=== PATIENT | female | born 1935 | race Caucasian/White ===

== ENCOUNTER → 2020-08-09 17:30 | Outpatient (CLI) | payer MEDICARE, SELFPAY ==
[2015-10-01 12:25] VITALS: BMI 37.4
[2020-08-09 17:51] LABS: Absolute Lymphocyte Count 1.28 X10^3/uL (0.83-4.51); Absolute Neutrophil Count 5.6 X10^3/uL (2.0-7.7); Basophil# 0.02 X10^3/uL; Basophil% 0.3 % (0-1); Eosinophil# 0.11 X10^3/uL; Eosinophils% 1.4 % (0-5); Hematocrit 45.2 % (37-47); Hemoglobin 14.5 g/dL (12.0-15.0); Lymphocyte # 1.28 X10^3/ul (0.83-4.51); Lymphocyte % 16.8 % (19-41); Mean Corp Hgb Conc 32.1 g/dL (32-36); Mean Corpuscular Hgb 28.7 pg (27.0-32.0); Mean Corpuscular Volume 89.3 fL (81-99); Monocyte# 0.51 X10^3/uL; Monocyte% 6.7 % (0-10); NRBC Flagged by Analyzer 0 % (0-5); Neutrophil % 73.7 % (47-70); Platelet Count 227 K/mm3 (150-450); RBC Distribution Width CV 13.5 % (11.6-14.6); RBC Distribution Width SD 44.3 fl (35.1-43.9); Red Blood Count 5.06 M/mm3 (4.2-5.4); White Blood Count 7.6 K/mm3 (4.4-11.0)
[2020-08-09 19:02] LABS: Vitamin B12 303 pg/mL (211-911)
[2020-08-09 19:09] LABS: AST(SGOT) 14 U/L (15-37); Alanine Aminotransfer ALT/SGPT 19 U/L (13-56); Albumin, Serum 3.8 g/dL (3.2-5.0); Alkaline Phosphatase 85 U/L (45-117); Anion Gap 7 (5-15); BUN 21 mg/dL (7-18); BUN/Creat Ratio 28.5 RATIO (10-20); Calcium,Total 8.9 mg/dL (8.5-10.1); Chloride 103 mmol/L (98-107); Cholesterol 183 mg/dL (200); Creatinine, Serum 0.74 mg/dL (0.55-1.02); EST Glomerular Filtration Rate 80 mL/min (>60); Est Glom Filt Rate - Afr Amer 96 mL/min (>60); Globulin 3.7 g/dL (2.2-4.2); Glucose 96 mg/dL (74-106); High Density Lipoprotein 78 mg/dL; Potassium 3.8 mmol/L (3.5-5.1); Protein, Total 7.5 g/dL (6.4-8.2); Sodium Level 136 mmol/L (136-145); Thyroid Stim Hormone (TSH) 5.22 uIU/mL (0.358-3.74); Triglycerides 71 mg/dL; Very Low Density Lipoprotein 14 mg/dL (5-40)
[2020-08-13 09:28] LABS: T4 Free Direct 1.04 ng/dL (0.76-1.46)
[2020-08-15 13:04] LABS: Anti-Thyroglobulin AB < 1.0 IU/mL (0.0-0.9); Thyroid Peroxidase AB < 9 IU/mL (0-34)
== END ==
PROVIDERS: PCP Family Medicine; Referring Provider Family Medicine; Visit Provider Family Medicine
DX: I10 Essential (primary) hypertension (principal); F17.200 Nicotine dependence, unspecified, uncomplicated; R41.3 Other amnesia
CPT/HCPCS: 36415; 80053; 80061; 82607; 84432; 84439; 84443; 85025; 86376; 86800

== ENCOUNTER → 2021-03-08 12:44 | Outpatient (CLI) | payer MEDICARE, SELFPAY ==
[2021-03-08 15:04] LABS: Absolute Lymphocyte Count 1.19 X10^3/uL (0.83-4.51); Absolute Neutrophil Count 3.8 X10^3/uL (2.0-7.7); Basophil# 0.02 X10^3/uL; Basophil% 0.4 % (0-1); Eosinophil# 0.06 X10^3/uL; Eosinophils% 1.1 % (0-5); Hemoglobin 15.4 g/dL (12.0-15.0); Lymphocyte # 1.19 X10^3/ul (0.83-4.51); Lymphocyte % 21.5 % (19-41); Mean Corp Hgb Conc 33.5 g/dL (32-36); Mean Corpuscular Hgb 29.4 pg (27.0-32.0); Mean Platelet Vol. 12.3 fl (6.2-12.0); Monocyte# 0.47 X10^3/uL; Monocyte% 8.5 % (0-10); NRBC Flagged by Analyzer 0 % (0-5); Neutrophil # 3.78 X10^3/uL (2.7-7.7); Neutrophil % 68.1 % (47-70); Platelet Count 161 K/mm3 (150-450); RBC Distribution Width SD 41.9 fl (35.1-43.9); Red Blood Count 5.23 M/mm3 (4.2-5.4); White Blood Count 5.5 K/mm3 (4.4-11.0)
[2021-03-08 15:25] LABS: Vitamin B12 287 pg/mL (211-911)
[2021-03-08 15:36] LABS: ALB/GLOB Ratio 0.9 RATIO (0.9-2.4); AST(SGOT) 20 U/L (15-37); Alanine Aminotransfer ALT/SGPT 27 U/L (13-56); Albumin, Serum 3.3 g/dL (3.2-5.0); Alkaline Phosphatase 76 U/L (45-117); Anion Gap 8 (5-15); BUN 25 mg/dL (7-18); BUN/Creat Ratio 23.1 RATIO (10-20); Calcium,Total 8.8 mg/dL (8.5-10.1); Chloride 107 mmol/L (98-107); Creatinine, Serum 1.08 mg/dL (0.55-1.02); EST Glomerular Filtration Rate 51 mL/min (>60); Est Glom Filt Rate - Afr Amer 62 mL/min (>60); Globulin 3.7 g/dL (2.2-4.2); Glucose 105 mg/dL (74-106); Sodium Level 137 mmol/L (136-145); T4 Free Direct 1.08 ng/dL (0.76-1.46); Thyroid Stim Hormone (TSH) 3.63 uIU/mL (0.358-3.74)
== END ==
PROVIDERS: PCP Family Medicine; Referring Provider Family Medicine; Visit Provider Family Medicine
DX: I10 Essential (primary) hypertension (principal); E03.8 Other specified hypothyroidism; F03.90 Unspecified dementia, unspecified severity, without behavioral disturbance, psychotic disturbance, mood disturbance, and anxiety
CPT/HCPCS: 36415; 80053; 82607; 84439; 84443; 85025

== ENCOUNTER → 2021-03-22 09:51 | Outpatient (CLI) | payer MEDICARE, SELFPAY ==
[2021-03-22 09:55] LABS: Bacteria 0 SEEN /hpf (None Seen); Mucous, Urine 0 SEEN /hpf (<or=2+); Red Blood Cells-Urine 0 SEEN /hpf (0-5); Squamous Epithelial Cells - UA 0 SEEN /hpf (5-10); White Blood Cells 0 SEEN /hpf (0-5)
[2021-03-22 10:05] LABS: Color, Urine Yellow (Yellow); Glucose, Dipstick Normal (Normal); Ketone-Dipstick Negative (Negative); Leukocyte Esterase-Dipstick Negative /ul (Negative); Nitrite-Dipstick Negative (Negative); Occult Blood-Urine 25 /ul (Negative); Protein-Dipstick Negative (Negative); Urine Bilirubin Dipstick Negative (Negative); Urine Clarity Clear (Clear); Urine Urobilinogen Normal (Normal)
== END ==
PROVIDERS: PCP Family Medicine; Visit Provider Family Medicine
DX: R44.3 Hallucinations, unspecified (principal)
CPT/HCPCS: 81001; 87086; 87088

== ENCOUNTER 2021-06-04 14:32 | Inpatient (IN) | payer MEDICARE, SELFPAY ==
[2021-06-04] VITALS (8 sets, daily range): BP systolic 154–188; BP diastolic 71–113; PULSE 77–87; RESP 16–18; TEMP 36.2–36.8; O2SAT 96–98; BMI 34.7; BMI 37.4
--- NOTE | 2021-06-04 15:00 | EKG12_ITS ---
Test Reason : SOB Blood Pressure : / mmHG Vent. Rate : 074 BPM Atrial Rate : 074 BPM P-R Int : 164 ms QRS Dur : 070 ms QT Int : 428 ms P-R-T Axes : 021 005 052 degrees QTc Int : 475 ms Normal sinus rhythm Normal ECG Confirmed by NIKKO VARELA, KIM ([id number]), clinical editor JULIÁN RICHARDS ([id number]) on 06/06/2021 1:37:48 PM Referred By: Confirmed By:KIM EL MD
--- NOTE | 2021-06-04 15:00 | RAD_ITS ---
STUDY: X-RAY CHEST REASON FOR EXAM: Female, 86 years old. Dyspnea, bilateral rales and pitting edema TECHNIQUE: PA and lateral views of the chest. COMPARISON: Comparison is made with prior study dated 01/04/2014. FINDINGS: EKG electrodes are seen. The lungs are clear and expanded. There is no demonstrated pleural abnormality. Normal size heart. Normal mediastinum and mirlande. Normal visualized pulmonary arteries. There is atherosclerotic calcification of the aortic arch with tortuosity. There is a dextroscoliosis of the thoracic spine. Prior ORIF of the proximal right humerus. There is no demonstrated abnormality of the visualized soft tissue structures of the upper abdomen. RAD/Chest PA and Lateral IMPRESSION: Stable examination. No acute abnormality is seen. Electronically Signed: Jl Akbar MD at 15:45 EST ,
--- NOTE | 2021-06-04 15:01 | ED.VIS.DYS ---
HPI History of Present Illness Chief Complaint: Shortness of Breath Detail of Chief Complaint: Days ago Informant: patient and other (Private wealth management director) Limited: dementia Onset/Context/Timing Onset: Days Context: - (Unknown) Timing: Continuous (Per wealth management director) Quality: Positive for Dyspnea on exertion; Negative for Orthopnea, PND and Wheezing Current Severity: Mild Maximum Severity: Moderate Worsened by: - (Minimal activity) Relieved by: Nothing Associated Symptoms fever, subjective and chills; Negative for cough, rhinorrhea, post nasal drip, ear pain, sore throat, sweats, clear sputum, white sputum, yellow sputum or green sputum Chest Pain: Positive for None Narrative Narrative: Patient is an 86-year-old woman who is disoriented and has mild dementia per wealth management director. History is limited because the wealth management director just started her shift and the patient responds to I do not know to many questions. She denies history of congestive heart failure. She denies orthopnea. She was unaware that her legs are discolored and she has edema. She has been vaccinated for Covid but not influenza. History limited to what has been documented. PE Risk Factors: Negative for Cancer, OCP + Smoking + > 35, Prior DVT or PE, Recent immobilization, Recent surgery and Recent travel Prior similar symptoms: No Recent Illness/Hospitalization: No PFSH PFSH Home Medications NK 06/04/21 [History Last Taken Unknown] Allergy/AdvReac Type Severity Reaction Status Date / Time codeine AdvReac Other Verified 06/04/21 15:45 prednisone AdvReac Other Verified 06/04/21 15:45 PAIN PILLS AdvReac Other Uncoded 06/04/21 15:45 Surgical History unable to obtain unable to obtain Social History (Updated 06/04/21 @ 15:[address] Hiren Orozco MD) household members: none Smoking Status: Current every day smoker tobacco type: cigarettes details: Unknown substance use type: does not use ROS ROS ED Review of Systems ROS Unobtainable: due to mental status Constitutional Constitutional ED: Reports chills and fever(s); Denies sweats or weight loss Cardiovascular Cardiovascular: Denies orthopnea or paroxysmal nocturnal dyspnea Respiratory/Chest Respiratory/Chest: Reports dyspnea and dyspnea on exertion; Denies cough, orthopnea, paroxysmal nocturnal dyspnea or sputum EXAM Physical Exam Const Vital Signs: 06/04/21 14:32 06/04/21 14:35 06/04/21 15:41 Temperature 98.3 F 98.3 F Temperature Source Temporal Temporal Pulse Rate 87 87 Respiratory Rate 16 16 Respiratory Effort Normal Non-Labored Respiratory Depth Normal Respiratory Pattern Normal Blood Pressure 170/113 H 154/71 H Blood Pressure Mean 132 98 Pulse Ox 98 98 Oxygen Delivery Method Room Air Room Air Room Air 06/04/21 16:32 06/04/21 18:09 Temperature Temperature Source Pulse Rate 77 80 Respiratory Rate 17 17 Respiratory Effort Respiratory Depth Respiratory Pattern Blood Pressure 188/101 H Blood Pressure Mean 130 Pulse Ox 96 97 Oxygen Delivery Method Room Air Positive well nourished, well developed and obese General Appearance ED: well developed and other Patient is tachypneic at rest and is breathing much more rapidly than 16 times per minute as documented by triage. ; Negative for NAD or pallor Nutritional Appearance: obese HEENT Reports TM's clear and moist mucous membranes HEENT Narrative: Nares patent. Uvula midline. No erythema or exudate posterior pharynx. atraumatic; Negative for tenderness Tympanic Membrane ED: Yes TM's clear Eyes PERRL and EOMs intact bilaterally General Eye ED: Negative for pale conjunctiva or scleral icterus Neck no lymphadenopathy, supple, no meningeal signs and no JVD Neck Narrative: There is no inspiratory expiratory stridor. There is no carotid bruits. Resp No normal respiratory effort and No clear to auscultation bilaterally Resp Narrative: Increased expiratory phase wheezing left upper lobe posteriorly Auscultation: rales bilateral mid and diminished lung sounds Cardio regular rate, regular rhythm, S1 normal heart sound, S2 normal heart sound and no murmurs GI non-tender, non-distended and no masses Auscultation: normoactive bowel sounds Palpation: soft Back/Spine no CVA tenderness and normal to inspection General Back: Negative for CVA tenderness Extremity Negative for normal to inspection Extremity Narrative: Both legs are discolored. She has pitting edema bilaterally. There is a lenticular rash with slightly prolonged capillary refill. Extremities are cool and not warm. There is no tenderness along the distribution deep venous system. There is no leg vein distention or palpable cords. There is no asymmetry. General Extremety ED: Yes edema; Negative for tenderness General Extremity: edema Neuro No oriented x3, CN's II-XII intact bilaterally and no sensory deficits noted Betsy Coma Scale: document GCS findings Spontaneous Obeys Commands Confused 14 Sensorium / Orientation: alert, oriented to person and oriented to place Motor Exam: strength 5/5 throughout Psych Negative for mental status grossly normal Skin no wounds General Skin Exam: Negative for jaundice or pallor Lesions: no lesions MDM MDM MDM Narrative Medical decision making narrative: Patient was brought to the ER for evaluation of dyspnea. History is limited. Need to rule out pulmonary versus cardiac versus systemic infection. Will obtain EKG, chest x-ray and appropriate blood work. Lab Data Attestation: I reviewed the patient's lab results. Lab results narrative: Patient's blood work is unremarkable. There is slight elevation in glucose. Patient troponin and BNP are normal. Since patient's chest x-ray is normal BNP is normal and she desaturates to 83% walking from her room to the restroom need to evaluate for pulmonary embolus or small infiltrate that is not noted on x-ray. Labs: Laboratory Results - last 24 hr 06/04/21 06/04/21 06/04/21 15:20 15:20 15:20 WBC 6.2 RBC 4.76 Hgb 14.1 Hct 41.6 MCV 87.4 MCH 29.6 MCHC 33.9 RDW Std Deviation 41.5 RDW Coeff of Filiberto 13.0 Plt Count 191 MPV 10.5 Immature Gran % (Auto) 1.000 H Neut % (Auto) 70.9 H Lymph % (Auto) 17.6 L [place] % (Auto) 9.1 Eos % (Auto) 1.1 Baso % (Auto) 0.3 Absolute Neuts (auto) 4.4 Absolute Lymphs (auto) 1.10 Nucleated RBC % 0 Sodium 135 L Potassium 4.2 Chloride 102 Carbon Dioxide 28.0 Anion Gap 5 BUN 19 H Creatinine 0.69 Estim Creat Clear Calc 31.94 Est GFR (MDRD) Af Amer 104 Est GFR (MDRD) Non-Af 86 BUN/Creatinine Ratio 27.5 H Glucose 108 H Lactic Acid 1.5 Calcium 8.6 Total Bilirubin 0.40 AST 16 ALT 25 Alkaline Phosphatase 72 Troponin I High Sens 5 B-Natriuretic Peptide Total Protein 7.1 Albumin 3.6 Globulin 3.5 Albumin/Globulin Ratio 1.0 06/04/21 15:20 WBC RBC Hgb Hct MCV MCH MCHC RDW Std Deviation RDW Coeff of Filiberto Plt Count MPV Immature Gran % (Auto) Neut % (Auto) Lymph % (Auto) [place] % (Auto) Eos % (Auto) Baso % (Auto) Absolute Neuts (auto) Absolute Lymphs (auto) Nucleated RBC % Sodium Potassium Chloride Carbon Dioxide Anion Gap BUN Creatinine Estim Creat Clear Calc Est GFR (MDRD) Af Amer Est GFR (MDRD) Non-Af BUN/Creatinine Ratio Glucose Lactic Acid Calcium Total Bilirubin AST ALT Alkaline Phosphatase Troponin I High Sens B-Natriuretic Peptide 17.5 Total Protein Albumin Globulin Albumin/Globulin Ratio Radiography Chest X-Ray - ED: 2 View (Chest x-ray interpreted by [facility] at 1545 as no acute process. Cardiac silhouette size normal. Right hemidiaphragm is elevated. There is minimal chronic lung parenchymal changes. Osseous structures are unremarkable.) Diagnostic Testing: Clinical Impression(s) from Imaging Studies Chest X-Ray 06/04/21 15:00 IMPRESSION: Stable examination. No acute abnormality is seen. Electronically Signed: Jl Akbar MD at 15:45 EST , Chest CTA 06/04/21 16:36 IMPRESSION: No demonstrated PE, or thoracic aortic aneurysm or dissection Lung ahuja show diffuse interstitial edema suggesting pulmonary vascular congestion or early CHF, there is associated chronic bronchitis. No organized infiltrate or effusion. Calcified coronary vessels Degenerative bony changes Hiatal hernia Electronically Signed: James Hanna MD at 17:19 EST , Reviewed read by radiologist. With a BNP of 17 doubt this is congestive heart failure. Since patient complained of subjective fever and chills concerned this may represent interstitial pneumonia even though her white count is normal. Contacted services support to discuss case with radiologist Dr. James Hanna The initial radiology who read the CTA is not available. A different radiologist reviewed the chest x-ray and CTA. He agrees there are some fine interstitial changes and this may represent an early pneumonia. Since wealth management director gives history that patient reported subjective fever and had chills and clinically she has bilateral rales with no evidence of heart failure suspect patient has early pneumonia causing her to desaturate to 83% with ambulation. Her Covid test was negative. Therefore, treated for pneumonia with Rocephin and azithromycin. EKG Initial EKG: Attestation: I personally reviewed and interpreted this EKG as follows: Interpretation: Sinus Rhythm (Ventricular rate is 74. AL interval is 164 ms. QS duration 70 ms. QT duration 428 ms. Cameron is normal. The EKG is normal.) Discharge Plan Dx/Rx/DC Orders Clinical Impression: Bilateral interstitial pneumonia, Hypoxia Disposition Disposition: Acute Care Hospital [facility]
[2021-06-04 15:33] LABS: Absolute Neutrophil Count 4.4 X10^3/uL (2.0-7.7); Basophil# 0.02 X10^3/uL; Basophil% 0.3 % (0-1); Eosinophil# 0.07 X10^3/uL; Eosinophils% 1.1 % (0-5); Hematocrit 41.6 % (37-47); Hemoglobin 14.1 g/dL (12.0-15.0); Lymphocyte % 17.6 % (19-41); Mean Corp Hgb Conc 33.9 g/dL (32-36); Mean Corpuscular Hgb 29.6 pg (27.0-32.0); Mean Corpuscular Volume 87.4 fL (81-99); Mean Platelet Vol. 10.5 fl (6.2-12.0); Monocyte# 0.57 X10^3/uL; Monocyte% 9.1 % (0-10); NRBC Flagged by Analyzer 0 % (0-5); Neutrophil # 4.42 X10^3/uL (2.7-7.7); Neutrophil % 70.9 % (47-70); Platelet Count 191 K/mm3 (150-450); RBC Distribution Width SD 41.5 fl (35.1-43.9); Red Blood Count 4.76 M/mm3 (4.2-5.4); White Blood Count 6.2 K/mm3 (4.4-11.0)
[2021-06-04 15:57] LABS: AST(SGOT) 16 U/L (15-37); Alanine Aminotransfer ALT/SGPT 25 U/L (13-56); Albumin, Serum 3.6 g/dL (3.2-5.0); Alkaline Phosphatase 72 U/L (45-117); Anion Gap 5 (5-15); BUN 19 mg/dL (7-18); BUN/Creat Ratio 27.5 RATIO (10-20); Calcium,Total 8.6 mg/dL (8.5-10.1); Chloride 102 mmol/L (98-107); Creatinine, Serum 0.69 mg/dL (0.55-1.02); EST Glomerular Filtration Rate 86 mL/min (>60); Est Glom Filt Rate - Afr Amer 104 mL/min (>60); Estimated Creatinine Clearance 31.94 ml/min; Globulin 3.5 g/dL (2.2-4.2); Glucose 108 mg/dL (74-106); Potassium 4.2 mmol/L (3.5-5.1); Protein, Total 7.1 g/dL (6.4-8.2); Sodium Level 135 mmol/L (136-145); Troponin-I HS 5 pg/mL (3.0-54.0)
[2021-06-04 16:08] LABS: Lactic Acid 1.5 mmol/L (0.4-1.9)
[2021-06-04 16:12] LABS: BNP,B-Type NATRIURETIC PEPTIDE 17.5 pg/mL (0-100)
--- NOTE | 2021-06-04 16:36 | CT_ITS ---
STUDY: CTA CHEST REASON FOR EXAM: Female, 86 years old. Atypical chest pain RADIATION DOSAGE (If Supplied By Facility): CTDIvol = ( 12.49 ) mGy, DLP = ( 489.94 ) mGycm TECHNIQUE: The examination was performed with the intravenous administration of IV 100mL Isovue-370. Post-processing of the angiographic images was performed, with multiplanar reformation and 3D reconstruction. Individualized dose optimization techniques were used for this CT. COMPARISON: None. FINDINGS: Normal enhancement of the main pulmonary artery and right and left pulmonary arteries. Normal enhancement of the bilateral peripheral pulmonary arteries. There is no demonstrated pulmonary embolism. There is atherosclerotic calcification of the aortic arch with tortuosity. There is no demonstrated aortic dissection. Normal heart and pericardium. There are calcifications of the coronary arteries. Normal mediastinum. Normal hilar regions. There is peribronchial thickening. The lungs are well expanded. Diffuse interstitial edema noted in both lung ahuja without organized infiltrate or effusions. This suggests pulmonary vascular congestion/CHF. Follow-up recommended to ensure resolution. Normal pleura. Normal chest wall structures. There are degenerative changes of thoracic spine. Limited cuts through the upper abdomen show a retrocardiac hiatal hernia with evidence of reflux esophagitis as the distal esophagus is thickened. There has been a previous cholecystectomy CT/CTA Chest W/WO Contrast IMPRESSION: No demonstrated PE, or thoracic aortic aneurysm or dissection Lung ahuja show diffuse interstitial edema suggesting pulmonary vascular congestion or early CHF, there is associated chronic bronchitis. No organized infiltrate or effusion. Calcified coronary vessels Degenerative bony changes Hiatal hernia Electronically Signed: James Hanna MD at 17:19 EST ,
--- NOTE | 2021-06-04 19:12 | HP.PCM.HOS_ITS ---
HPI - General HPI Narrative SHANNAN PETERSON, is a 86 F who presents with shortness of breath and confusion. Typically she has RAMIREZ with walking, but this is worse. She presents to the ED and was felt to have pneumonia and started on ceftriaxone and azithromycin. [facility] Medical History Anxiety Hyperlipemia Hypertension Obesity Home Medications NK 06/04/21 [History Last Taken Unknown] Allergy/AdvReac Type Severity Reaction Status Date / Time codeine AdvReac Other Verified 06/04/21 15:45 prednisone AdvReac Other Verified 06/04/21 15:45 PAIN PILLS AdvReac Other Uncoded 06/04/21 15:45 unable to obtain Surgical History unable to obtain Social History household members: none Smoking Status: Current every day smoker tobacco type: cigarettes details: Unknown substance use type: does not use ROS ROS Narrative Patient has a chronic cough but no changes. No sputum production. Denies any chest pain. Some lower extremity edema that waxes and wanes. Patient occasionally gets some dependent rubor. All review of systems were negative except as mentioned above in the history of present illness and the other review of systems. Vital Signs Vital Signs Vital Signs: 06/04/21 14:32 06/04/21 14:35 06/04/21 15:41 Temperature 36.8 C 36.8 C Temperature Source Temporal Temporal Pulse Rate 87 87 Respiratory Rate 16 16 Respiratory Effort Normal Non-Labored Respiratory Depth Normal Respiratory Pattern Normal Blood Pressure 170/113 H 154/71 H Blood Pressure Mean 132 98 Pulse Ox 98 98 Oxygen Delivery Method Room Air Room Air Room Air 06/04/21 16:32 06/04/21 18:09 06/04/21 18:59 Temperature 36.2 C L Temperature Source Oral Pulse Rate 77 80 78 Respiratory Rate 17 17 16 Respiratory Effort Respiratory Depth Respiratory Pattern Blood Pressure 188/101 H 161/102 H Blood Pressure Mean 130 121 Pulse Ox 96 97 97 Oxygen Delivery Method Room Air Room Air Weight Weight: 86.183 kg Body Mass Index (BMI) 34.7 Physical Exam Const alert General Appearance: cooperative HEENT normocephalic and head/scalp atraumatic Eyes Eyes Narrative: No icterus Resp normal respiratory effort, no retractions, no use of accessory muscles and clear to auscultation bilaterally Cardio regular rate, regular rhythm, S1 normal heart sound and S2 normal heart sound GI normal to inspection, nondistended, normoactive bowel sounds, soft to palpation, non-tender and non-distended Extremity Extremity Narrative: Trace lower extremity edema Neuro Sensorium / Orientation: awake and alert Psych affect normal Results Lab / Micro Data Attestation: I reviewed the patient's lab results. Result Diagrams: 06/04/21 15:20 06/04/21 15:20 Labs: Laboratory Results - last 24 hr 06/04/21 15:20: WBC 6.2, RBC 4.76, Hgb 14.1, Hct 41.6, MCV 87.4, MCH 29.6, MCHC 33.9, RDW Std Deviation 41.5, RDW Coeff of Filiberto 13.0, Plt Count 191, MPV 10.5, Immature Gran % (Auto) 1.000 H, Neut % (Auto) 70.9 H, Lymph % (Auto) 17.6 L, [place] % (Auto) 9.1, Eos % (Auto) 1.1, Baso % (Auto) 0.3, Absolute Neuts (auto) 4.4, Absolute Lymphs (auto) 1.10, Nucleated RBC % 0 06/04/21 15:20: Sodium 135 L, Potassium 4.2, Chloride 102, Carbon Dioxide 28.0, Anion Gap 5, BUN 19 H, Creatinine 0.69, Estim Creat Clear Calc 31.94, Est GFR (MDRD) Af Amer 104, Est GFR (MDRD) Non-Af 86, BUN/Creatinine Ratio 27.5 H, Glucose 108 H, Calcium 8.6, Total Bilirubin 0.40, AST 16, ALT 25, Alkaline Phosphatase 72, Troponin I High Sens 5, Total Protein 7.1, Albumin 3.6, Globulin 3.5, Albumin/Globulin Ratio 1.0 06/04/21 15:20: Lactic Acid 1.5 06/04/21 15:20: B-Natriuretic Peptide 17.5 Micro: Microbiology 06/04/21 15:15 Nasal Secretion SARS-CoV-2 Antigen (Rapid) - Final Radiology Impression Chest X-Ray 06/04/21 15:00 IMPRESSION: Stable examination. No acute abnormality is seen. Electronically Signed: Jl Akbar MD at 15:45 EST , Chest CTA 06/04/21 16:36 IMPRESSION: No demonstrated PE, or thoracic aortic aneurysm or dissection Lung ahuja show diffuse interstitial edema suggesting pulmonary vascular congestion or early CHF, there is associated chronic bronchitis. No organized infiltrate or effusion. Calcified coronary vessels Degenerative bony changes Hiatal hernia Electronically Signed: James Hanna MD at 17:19 EST , Assessment & Plan Assessment/Plan (1) Hypoxia: (2) Bilateral interstitial pneumonia: PLAN: 1. Hypoxia Patient is in the mid 90s at rest on room air but when she moved to the restroom and back she was 83% on room air. This is worse than her baseline. The son, is present at bedside, states that they do not check her oxygen at home but she does get shortness of breath. Feel patient likely has some chronic lung disease that were now seeing that may be potentially worsened by pneumonia. Patient may benefit from an amatory pulse ox prior to discharge to see if she would require oxygen. 2. Possible pneumococcal pneumonia Versus atypical Ceftriaxone and azithromycin to be continued Check Streptococcus and Legionella antigens. 3. Encephalopathy Patient may have some underlying dementia and this can be further elucidated as an outpatient But this may be complicated by her hypoxia. No additional work-up at this time. 4. VTE prophylaxis with enoxaparin 6. COVID-19 vaccination status: Patient has been vaccinated with 2 shots. Her son is unsure what type she received though I suspect it has been a while since she received it. I advised him to call us back in regards to what the vaccination was whether it was Pfizer [place] and when that was to see if she would qualify for a booster while she is in the hospital. He stated that he would be amenable to her receiving it while she is here. 7. CODE STATUS: Addressed with the patient's son. Patient is to be full CODE STATUS. Charges/Coding Visit Charges Inpatient E&M: 19240 Init Hosp L2
--- NOTE | 2021-06-04 19:25 | CASEMGMT ---
PELON ENGLAND Assessment: PELON ENGLAND to room to meet with patient for initial transition planning/care coordination assessment. PELON ENGLAND introduced self and role at [facility]. Patient voices understanding and consents to assessment at this time. Patient's son Evan Leroy present at bedside and active in transition planning. Patient has some difficulty answering questions and often looks to son for guidance or reassurance that history she is providing is accurate. Patient sitting up on ER cart in no apparent distress. Care providers, pharmacy, and demographics verified/updated at this time. Admitting Dx: pneumonia PCP: Gerson Resendiz Specialists: Denies Preferred Pharmacy: [facility] Insurance: [employer] Prescription Benefit: yes Living Will/HPOA: Patient has living will and HPOA is daughter Maia. These forms are on file at [facility]. LNOK: Daughter Maia Ritchie and son Evan Leroy Jr. Living Arrangements: Patient lives alone in two story house. Son reports patient lives in basement area of home-- no steps to enter the home but 8-9 steps to walk down immediately upon entering. Son states patient has bedroom, bathroom and kitchen all on the basement level and spends all of her time there. Patient needs assistance with ADLs and has kitchen aide service. Patient typically ambulates independently without the use of an assistive device. Smoking/ETOH: Patient states she smokes 1 ppd but son states patient quit smoking 2 months ago, though she still believes she smokes. Denies ETOH use. Transportation: Patient does not drive. Family available to transport patient. DME/HHC/SNF: Patient has walker and cane available in home but states does not need or use these items. Also available in home: grab bars, hand held shower and medical alert. Patient has kitchen aide service through [facility]. Aide visits 4 hrs/day in the mornings and assists patient with dressing and preparing meals. Family currently working to increase aide hours to 8 hrs/day, 7 days/week. Denies previous skilled HHC. Denies previous SNF stays. Of note, patient quit taking all prescribed medications 2 years ago because she doesn't want to take medications. Son reports patient was recently prescribed a blood pressure medication by PCP but patient refuses to take it. Patient and son have no concerns with going home at time of discharge with continued kitchen aide services. PELON ENGLAND spoke with patient and son regarding skilled HHC and patient denies need at this time. CM to follow for any discharge planning/needs. Patient and son voice no concerns/needs at this time. Advised patient and son to ask for CM if any questions/concerns/needs arise. Voices understanding. Plan: home with continued kitchen aide services
[2021-06-05] VITALS (9 sets, daily range): BP systolic 120–201; BP diastolic 70–104; PULSE 76–87; RESP 18; TEMP 36.4–37; O2SAT 93–98
[2021-06-05] MEDS: amLODIPine 10 MG Tablet PO (02:11)
[2021-06-05 05:44] LABS: Absolute Lymphocyte Count 1.35 X10^3/uL (0.83-4.51); Absolute Neutrophil Count 3.9 X10^3/uL (2.0-7.7); Basophil# 0.03 X10^3/uL; Basophil% 0.5 % (0-1); Eosinophil# 0.12 X10^3/uL; Hematocrit 40.7 % (37-47); Hemoglobin 13.8 g/dL (12.0-15.0); Lymphocyte # 1.35 X10^3/ul (0.83-4.51); Lymphocyte % 22.2 % (19-41); Mean Corp Hgb Conc 33.9 g/dL (32-36); Mean Corpuscular Hgb 29.9 pg (27.0-32.0); Mean Corpuscular Volume 88.1 fL (81-99); Mean Platelet Vol. 10.9 fl (6.2-12.0); Monocyte# 0.57 X10^3/uL; Monocyte% 9.4 % (0-10); NRBC Flagged by Analyzer 0 % (0-5); Neutrophil # 3.94 X10^3/uL (2.7-7.7); Neutrophil % 64.9 % (47-70); Platelet Count 193 K/mm3 (150-450); RBC Distribution Width CV 13.2 % (11.6-14.6); RBC Distribution Width SD 42.6 fl (35.1-43.9); Red Blood Count 4.62 M/mm3 (4.2-5.4); White Blood Count 6.1 K/mm3 (4.4-11.0)
[2021-06-05 06:07] LABS: Anion Gap 4 (5-15); BUN 13 mg/dL (7-18); BUN/Creat Ratio 21.1 RATIO (10-20); Calcium,Total 8.5 mg/dL (8.5-10.1); Chloride 104 mmol/L (98-107); Creatinine, Serum 0.62 mg/dL (0.55-1.02); EST Glomerular Filtration Rate 98 mL/min (>60); Est Glom Filt Rate - Afr Amer 118 mL/min (>60); Estimated Creatinine Clearance 31.94 ml/min; Glucose 91 mg/dL (74-106); Potassium 3.9 mmol/L (3.5-5.1); Sodium Level 137 mmol/L (136-145)
[2021-06-05] MEDS: Enoxaparin 40 MG/0.4 ML Syringe SC (08:12)
--- NOTE | 2021-06-05 09:51 | RAD_ITS ---
STUDY: X-RAY CHEST REASON FOR EXAM: Female, 86 years old. SOB TECHNIQUE: Single AP portable view of the chest. COMPARISON: Comparison is made with prior study dated 06/04/2021. FINDINGS: Stable mild elevation of the right hemidiaphragm. There is no demonstrated pleural abnormality. Normal size heart. Normal mediastinum and mirlande. Normal visualized pulmonary arteries. There is atherosclerotic calcification of the aortic arch with tortuosity. There are diffuse degenerative changes of the visualized thoracic spine. Dextroscoliosis. Prior ORIF of the proximal right humerus. There is no demonstrated abnormality of the visualized soft tissue structures of the upper abdomen. RAD/Chest 1 View (Portable) IMPRESSION: Stable examination. No acute abnormality is seen. Electronically Signed: Jl Akbar MD at 14:10 EST ,
--- NOTE | 2021-06-05 09:52 | ECHOD_ITS ---
Version 2 Reason For Study: DYSPNEA Procedure This was a 2D Doppler, Color Flow transthoracic echocardiogram. The study was technically difficult. Exam performed portable in patient room. Left Ventricle Normal LV size. Left ventricular systolic function is normal. The estimated ejection fraction is 60 %. Stage 1 diastolic dysfunction. No regional wall motion abnormalities noted. Right Ventricle Normal RV size. Normal systolic function. Atria Normal left atrium. Normal right atrium. Mitral Valve Normal mitral valve. Tricuspid Valve Normal tricuspid valve. Mild (1+) tricuspid valve insufficiency. Pulmonary artery systolic pressure is 36 mmHg. Aortic Valve Normal aortic valve. Trisinus/trileaflet aortic valve. Pulmonic Valve Normal pulmonic valve. Great Vessels Normal aortic root. The pulmonary artery is normal size. Normal inferior vena cava. Pericardium/Pleural No pericardial effusion. MMode/2D Measurements & Calculations LVIDd: 3.9 cm IVSd: 0.79 cm Ao root diam: 2.4 cm LVIDs: 2.6 cm LVPWd: 0.78 cm RVDd: 3.2 cm FS: 34.2 % LAV(MOD-bp): 41.4 ml LVAd ap4: 19.2 cm2 LVAd ap2: 20.7 cm2 LAV(MOD-bp) Indexed: 21.5 ml/m2 LVLd ap4: 7.1 cm LVLd ap2: 7.0 cm LAV(MOD-sp2): 38.0 ml EDV(MOD-sp4): 43.9 ml EDV(MOD-sp2): 52.5 ml LAV(MOD-sp4): 33.2 ml EDV(sp4-el): 44.3 ml EDV(sp2-el): 52.0 ml LVAs ap4: 9.0 cm2 LVAs ap2: 9.4 cm2 LVLs ap4: 5.7 cm LVLs ap2: 5.6 cm ESV(MOD-sp4): 12.7 ml ESV(MOD-sp2): 13.5 ml ESV(sp4-el): 12.0 ml ESV(sp2-el): 13.5 ml EF(MOD-sp4): 71.1 % EF(MOD-sp2): 74.3 % EF(sp4-el): 72.9 % SV(MOD-sp4): 31.2 ml SV(MOD-sp2): 39.0 ml SV(sp4-el): 32.3 ml LA dimension(2D): 2.7 cm LA A4 area: 15.3 cm2 RA A4 area: 10.4 cm2 Doppler Measurements & Calculations MV E max kurt: 93.3 cm/sec Lat Peak E' Kurt: 5.8 cm/sec Med Peak E' Kurt: 4.8 cm/sec MV A max kurt: 121.8 cm/sec E/E' lat: 16.1 E/E' med: 19.5 MV E/A: 0.77 MV V2 max: 133.9 cm/sec Ao V2 max: 156.7 cm/sec LV V1 max: 125.6 cm/sec MV max P.2 mmHg Ao max P.8 mmHg LV V1 max P.3 mmHg MV V2 mean: 82.0 cm/sec MV mean P.0 mmHg MV V2 VTI: 39.3 cm TR max kurt: 282.0 cm/sec MV P1/2t-pr_phl: 95.8 msec TR max P.0 mmHg ECHO/Echo Complete Interpretation Summary Normal LV size. Left ventricular systolic function is normal. The estimated ejection fraction is 60 %. Stage 1 diastolic dysfunction. Ordering Physician: Lucinda Estevez Referring Physician: AMINATA SHAH Performed By: Deb Zuniga RDCS, RVT
[2021-06-05] MEDS: Ipratropium/Albuterol Sulfate 3 ML AMPUL.NEB INHALATION ×2 (10:55→14:51)
--- NOTE | 2021-06-05 12:18 | CASEMGMT ---
Addendum entered by Iona Linder 06/05/21 13:35: Received tc back from [facility], they can do SOC on Thursday. 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 Pt son is unable to answer the phone when he is at work. Original Note: [place] in to pt room, pt son present. Pt sitting up in chair in no distress. Noted therapy is [place]. Discussed this with pt and son. Pt states if it is recommended, she is agreeable. Discussed SN being added. They deny the need for this as they have private duty aides, explained the difference in roles. Pt and son still deny need at this time. Patient was provided a list of C providers including quality and resource use data and consistent with the patient?s preferred geographic region, medical needs, and insurance network. The patient?s preferred provider is [facility]. Pulse ox provided to son per nurse request as he is present. Pt did not qualify for home O2. TC to [facility] at [facility] intake to make referral, she will call CM back with acceptance.
--- NOTE | 2021-06-05 13:07 | PCM.DC ---
Discharge Instructions Diet Discharge Diet: Low fat / Low cholesterol and 2000 mg Sodium Diet Activity Discharge Activity: Return to Normal Activity Follow Up Care Test Results: Test results from this visit will be discussed in further detail at your follow-up appointment, if applicable. Discharge Plan Admission Admit Date/Time: 06/04/21 19:03 Primary Reason for Your Visit: Dyspnea Attending Provider: Lucinda Estevez Primary Care Provider: Gerson Resendiz Instructions Additional Instructions / Restrictions: Continue to use your incentive spirometer. Follow-up with your primary care doctor in the outpatient. Discharge Orders/Prescriptions Prescriptions: New Mucus Relief ER 1,200 mg Tablet Extended Release 12hr 1,200 mg PO BID PRN (Reason: COUGH) 5 Days Qty: 10 RF: 0 albuterol sulfate 90 mcg/actuation HFA aerosol inhaler 1 inh inhalation Q6H PRN (Reason: shortness of breath or wheezing) 30 Days Qty: 8.5 RF: 0 Referrals / Follow Up: Gerson Resendiz MD [Primary Care Provider] - Within 2 Weeks Disposition Disposition (needs filled in before D/C Order can be placed): Home Health Service
--- NOTE | 2021-06-05 14:18 | PCM.DC.SUM ---
Providers Date of Admission: 06/04/21 Date of Discharge: 06/05/21 Primary Care Physician: Dr. Gerson Resendiz MD Reason For Visit: PNEUMONIA Diagnosis Discharge Diagnosis (1) Hypoxia: Status: Acute Code(s): R09.02 - Hypoxemia (2) Bilateral interstitial pneumonia: Status: Acute Code(s): J84.9 - Interstitial pulmonary disease, unspecified (3) Hyperlipemia: Status: Chronic Code(s): E78.5 - Hyperlipidemia, unspecified (4) Hypertension: Status: Chronic Code(s): I10 - Essential (primary) hypertension Medications at Discharge Home Medications albuterol sulfate 1 inh INHALATION Q6H PRN 30 Days #8.5 g 06/05/21 furosemide [Lasix] 20 mg PO DAILY 30 Days #30 tab 06/05/21 guaifenesin [Mucus Relief ER] 1,200 mg PO BID PRN 5 Days #10 tab 06/05/21 Hospital Course Operations None Procedures None Summary of Care Provided Minutes Spent on Discharge: 40 Hospital Course: 86-year-old female with past medical history of hypertension, hyperlipidemia, chronic smoker who comes in with progressive shortness of breath. Patient was found to be unremarkable to be hypoxic with SPO2 83% on room air. His chest x-ray and CTA of the chest was negative for acute PE. It showed probable vascular congestion. However her BNP Was 17.5. Patient did not look clinically overloaded. [facility] and started on IV antibiotics for probable early pneumonia. There were no acute events overnight. Patient did not need oxygen. She was reevaluated in the morning, she was found not to require oxygen evaluation. Repeat chest x-ray was negative for acute cardiopulmonary process. 2D echo showed EF of 60%, stage I diastolic dysfunction. Patient was discharged home on inhaler, low-dose Lasix for probable acute on chronic CHF exacerbation. She should follow-up with her primary care doctor within a week for repeat kidney function test. She was strongly advised to quit smoking Physical Exam Narrative Physical exam: General: Alert, Oriented x3, Cooperative, No apparent distress, appears comfortable, hard of hearing HEENT: Atraumatic Oral: Moist Mucosa Neck: Supple Lungs: Diminished to auscultation, otherwise clear Cardiovascular: HS I+II, regular, no murmurs Abdomen: Bowel Sounds Present, Soft, Non Tender Extremities: No edema Weight / BMI Weight Weight: 92.9 kg Body Mass Index (BMI) 37.4 ABG / Lab / Microbiology Data Result Diagrams: 06/05/21 05:08 06/05/21 05:08 Laboratory: Laboratory Results - last 24 hr 06/04/21 15:20: WBC 6.2, RBC 4.76, Hgb 14.1, Hct 41.6, MCV 87.4, MCH 29.6, MCHC 33.9, RDW Std Deviation 41.5, RDW Coeff of Filiberto 13.0, Plt Count 191, MPV 10.5, Immature Gran % (Auto) 1.000 H, Neut % (Auto) 70.9 H, Lymph % (Auto) 17.6 L, Yancey % (Auto) 9.1, Eos % (Auto) 1.1, Baso % (Auto) 0.3, Absolute Neuts (auto) 4.4, Absolute Lymphs (auto) 1.10, Nucleated RBC % 0 06/04/21 15:20: Sodium 135 L, Potassium 4.2, Chloride 102, Carbon Dioxide 28.0, Anion Gap 5, BUN 19 H, Creatinine 0.69, Estim Creat Clear Calc 31.94, Est GFR (MDRD) Af Amer 104, Est GFR (MDRD) Non-Af 86, BUN/Creatinine Ratio 27.5 H, Glucose 108 H, Calcium 8.6, Total Bilirubin 0.40, AST 16, ALT 25, Alkaline Phosphatase 72, Troponin I High Sens 5, Total Protein 7.1, Albumin 3.6, Globulin 3.5, Albumin/Globulin Ratio 1.0 06/04/21 15:20: Lactic Acid 1.5 06/04/21 15:20: B-Natriuretic Peptide 17.5 06/05/21 05:08: WBC 6.1, RBC 4.62, Hgb 13.8, Hct 40.7, MCV 88.1, MCH 29.9, MCHC 33.9, RDW Std Deviation 42.6, RDW Coeff of Filiberto 13.2, Plt Count 193, MPV 10.9, Immature Gran % (Auto) 1.000 H, Neut % (Auto) 64.9, Lymph % (Auto) 22.2, Yancey % (Auto) 9.4, Eos % (Auto) 2.0, Baso % (Auto) 0.5, Absolute Neuts (auto) 3.9, Absolute Lymphs (auto) 1.35, Nucleated RBC % 0 06/05/21 05:08: Sodium 137, Potassium 3.9, Chloride 104, Carbon Dioxide 29.0, Anion Gap 4 L, BUN 13, Creatinine 0.62, Estim Creat Clear Calc 31.94, Est GFR (MDRD) Af Amer 118, Est GFR (MDRD) Non-Af 98, BUN/Creatinine Ratio 21.1 H, Glucose 91, Calcium 8.5 Microbiology: Microbiology 06/04/21 23:20 Urine, Random Legionella Antigen - Final 06/04/21 23:20 Urine, Random Streptococcus pneumoniae Antigen (M - Final 06/04/21 15:15 Nasal Secretion SARS-CoV-2 Antigen (Rapid) - Final Radiography Diagnostic Testing: Radiology Impression Chest X-Ray 06/04/21 15:00 IMPRESSION: Stable examination. No acute abnormality is seen. Electronically Signed: Jl Akbar MD at 15:45 EST , Chest CTA 06/04/21 16:36 IMPRESSION: No demonstrated PE, or thoracic aortic aneurysm or dissection Lung ahuja show diffuse interstitial edema suggesting pulmonary vascular congestion or early CHF, there is associated chronic bronchitis. No organized infiltrate or effusion. Calcified coronary vessels Degenerative bony changes Hiatal hernia Electronically Signed: James Hanna MD at 17:19 EST , Chest X-Ray 06/05/21 09:51 IMPRESSION: Stable examination. No acute abnormality is seen. Electronically Signed: Jl Akbar MD at 14:10 EST , D/C Instructions Discharge Diet: Low fat / Low cholesterol and 2000 mg Sodium Diet Meaningful Use Info Meaningful Use Diagnoses (Choose all that apply): None applicable Discharge Plan Admission Admit Date/Time: 06/04/21 19:03 Primary Reason for Your Visit: Dyspnea Attending Provider: Lucinda Estevez Primary Care Provider: Gerson Resendiz Instructions Additional Instructions / Restrictions: Continue to use your incentive spirometer. Follow-up with your primary care doctor in the outpatient. Discharge Orders/Prescriptions Prescriptions: New Mucus Relief ER 1,200 mg Tablet Extended Release 12hr 1,200 mg PO BID PRN (Reason: COUGH) 5 Days Qty: 10 RF: 0 albuterol sulfate 90 mcg/actuation HFA aerosol inhaler 1 inh inhalation Q6H PRN (Reason: shortness of breath or wheezing) 30 Days Qty: 8.5 RF: 0 furosemide [Lasix] 20 mg tablet 20 mg PO DAILY 30 Days Qty: 30 RF: 0 Referrals / Follow Up: Gerson Resendiz MD [Primary Care Provider] - Within 2 Weeks Disposition Disposition (needs filled in before D/C Order can be placed): Home Health Service Charges/Coding Visit Charges Inpatient E&M: 82468 Disch Hosp
[2021-06-05] MEDS: COVID-19 VACC, MRNA(PFIZER)/PF 30 MCG/0.3 ML SYRINGE IM (17:25)
== END 2021-06-05 17:40 | disposition home health service (06) | DRG 196 ==
LOC: ED 19:03 → MS3 19:18
PROVIDERS: Emergency Provider Emergency Medicine; PCP Family Medicine; Visit Provider Internal Medicine
DX: J84.9 Interstitial pulmonary disease, unspecified (principal); I50.33 Acute on chronic diastolic (congestive) heart failure; F03.90 Unspecified dementia, unspecified severity, without behavioral disturbance, psychotic disturbance, mood disturbance, and anxiety; I11.0 Hypertensive heart disease with heart failure; E78.5 Hyperlipidemia, unspecified; F17.210 Nicotine dependence, cigarettes, uncomplicated; E66.9 Obesity, unspecified; R09.02 Hypoxemia; Z68.34 Body mass index [BMI] 34.0-34.9, adult; Z79.899 Other long term (current) drug therapy
CPT/HCPCS: 0004A; 36415; 71045; 71046; 71275; 80048; 80053; 83605; 83880; 84484; 85025; 87426; 87449; 91300; 93005; 93306; 94640; 97162; 97166; 99285; J7040; Q9967; A4216; J0696

== ENCOUNTER 2021-06-20 11:46 | Outpatient (CLI) | payer MEDICARE, SELFPAY ==
--- NOTE | 2021-06-20 11:49 | RAD_ITS ---
INDICATION: PNEUMONIA EXAMINATION/TECHNIQUE: X-RAY - XR Chest 2 Views COMPARISON: Chest radiograph from 06/05/2021. FINDINGS: Support devices: None. Aeration of lungs is unchanged with no focal consolidations, effusions, or sizable pneumothorax. Heart size is stable. Bones and soft tissues are unchanged. RAD/Chest PA and Lateral IMPRESSION: No acute findings. Stable exam since 06/05/2021 Electronically Signed: Alfred Lynn, at 12:18 EDT ,
[2021-06-20 15:25] LABS: Anion Gap 4 (5-15); BUN 15 mg/dL (7-18); BUN/Creat Ratio 14.6 RATIO (10-20); Calcium,Total 8.8 mg/dL (8.5-10.1); Chloride 102 mmol/L (98-107); Creatinine, Serum 1.03 mg/dL (0.55-1.02); EST Glomerular Filtration Rate 54 mL/min (>60); Est Glom Filt Rate - Afr Amer 65 mL/min (>60); Glucose 98 mg/dL (74-106); Potassium 3.8 mmol/L (3.5-5.1); Sodium Level 139 mmol/L (136-145)
== END 2021-06-20 23:59 | disposition home or self-care (01) ==
LOC: MTLAB 11:48
PROVIDERS: PCP Family Medicine; Referring Provider Family Medicine; Visit Provider Family Medicine
DX: J18.9 Pneumonia, unspecified organism (principal)
CPT/HCPCS: 36415; 71046; 80048

== ENCOUNTER 2021-07-03 10:52 | Outpatient (CLI) | payer MEDICARE, SELFPAY ==
--- NOTE | 2021-07-03 10:55 | RAD_ITS ---
EXAM: X-ray chest PA and lateral. HISTORY: WHEEZING TECHNIQUE: XR Chest 2 Views COMPARISON: June 20, 2021, also PA and lateral views. LIMITATIONS: None. HEART: Normal size. TUBES/LINES: None. LUNGS: No acute findings. Small calcified granuloma in the left lung apex. PLEURA: Normal. MEDIASTINUM: No widening. There is moderate peripheral calcification of the aortic arch similar to prior exam. BONES/SOFT TISSUES: Postoperative change of the right humeral head and neck is partially included. There is moderate dextroscoliosis of the midthoracic spine similar to prior exam. OTHER: Cholecystectomy clips are noted. CONCLUSION: Stable chest. No acute findings. Electronically Signed: Akua August MD at 20:51 EDT , RAD/Chest PA and Lateral
[2021-07-03 11:03] LABS: Bacteria 0 SEEN /hpf (None Seen); Mucous, Urine 0 SEEN /hpf (<or=2+); Red Blood Cells-Urine 0 SEEN /hpf (0-5); Squamous Epithelial Cells - UA 0 SEEN /hpf (5-10); White Blood Cells 0 SEEN /hpf (0-5)
[2021-07-03 12:07] LABS: Absolute Lymphocyte Count 1.45 X10^3/uL (0.83-4.51); Basophil# 0.04 X10^3/uL; Basophil% 0.7 % (0-1); Eosinophil# 0.13 X10^3/uL; Eosinophils% 2.1 % (0-5); Hematocrit 44.6 % (37-47); Hemoglobin 15.5 g/dL (12.0-15.0); Lymphocyte # 1.45 X10^3/ul (0.83-4.51); Lymphocyte % 23.7 % (19-41); Mean Corp Hgb Conc 34.8 g/dL (32-36); Mean Corpuscular Hgb 30.3 pg (27.0-32.0); Mean Corpuscular Volume 87.3 fL (81-99); Mean Platelet Vol. 12.3 fl (6.2-12.0); Monocyte# 0.47 X10^3/uL; Monocyte% 7.7 % (0-10); NRBC Flagged by Analyzer 0 % (0-5); Neutrophil # 3.96 X10^3/uL (2.7-7.7); Neutrophil % 64.8 % (47-70); Platelet Count 153 K/mm3 (150-450); RBC Distribution Width CV 12.9 % (11.6-14.6); RBC Distribution Width SD 41.2 fl (35.1-43.9); Red Blood Count 5.11 M/mm3 (4.2-5.4); White Blood Count 6.1 K/mm3 (4.4-11.0)
[2021-07-03 12:12] LABS: Color, Urine Yellow (Yellow); Glucose, Dipstick Normal (Normal); Ketone-Dipstick Negative (Negative); Leukocyte Esterase-Dipstick Negative /ul (Negative); Nitrite-Dipstick Negative (Negative); Occult Blood-Urine 25 /ul (Negative); Protein-Dipstick Negative (Negative); Specific Gravity, Urine 1.015 (1.002-1.030); Urine Bilirubin Dipstick Negative (Negative); Urine Clarity Clear (Clear); Urine Urobilinogen Normal (Normal)
[2021-07-03 12:47] LABS: AST(SGOT) 19 U/L (15-37); Alanine Aminotransfer ALT/SGPT 27 U/L (13-56); Albumin, Serum 3.7 g/dL (3.2-5.0); Alkaline Phosphatase 75 U/L (45-117); Anion Gap 5 (5-15); BUN 16 mg/dL (7-18); BUN/Creat Ratio 19.9 RATIO (10-20); Calcium,Total 8.4 mg/dL (8.5-10.1); Chloride 103 mmol/L (98-107); Cholesterol 183 mg/dL (200); EST Glomerular Filtration Rate 72 mL/min (>60); Est Glom Filt Rate - Afr Amer 87 mL/min (>60); Globulin 3.7 g/dL (2.2-4.2); Glucose 104 mg/dL (74-106); High Density Lipoprotein 63 mg/dL; Potassium 3.6 mmol/L (3.5-5.1); Protein, Total 7.4 g/dL (6.4-8.2); Sodium Level 137 mmol/L (136-145); T4 Free Direct 0.95 ng/dL (0.76-1.46); Thyroid Stim Hormone (TSH) 4.96 uIU/mL (0.358-3.74); Triglycerides 156 mg/dL; Very Low Density Lipoprotein 31 mg/dL (5-40)
[2021-07-03 12:56] LABS: Protein, Urine (Random) 10.5 mg/dL (<11.9); Protein:Creat Ratio 220 mg/g CRE (0-200)
== END 2021-07-03 23:59 | disposition home or self-care (01) ==
PROVIDERS: PCP Family Medicine; Referring Provider Family Medicine; Visit Provider Family Medicine
DX: R06.2 Wheezing (principal); I10 Essential (primary) hypertension; E78.00 Pure hypercholesterolemia, unspecified; E03.8 Other specified hypothyroidism
CPT/HCPCS: 71046; 80053; 80061; 81001; 82570; 84156; 84439; 84443; 85025

== ENCOUNTER → 2022-01-23 | Outpatient (CLI) | payer MEDICARE, SELFPAY ==
[2022-01-23 15:25] LABS: Absolute Lymphocyte Count 1.19 X10^3/uL (0.83-4.51); Absolute Neutrophil Count 3.8 X10^3/uL (2.0-7.7); Basophil# 0.03 X10^3/uL; Basophil% 0.5 % (0-1); Eosinophil# 0.14 X10^3/uL; Eosinophils% 2.5 % (0-5); Hematocrit 42.1 % (37-47); Hemoglobin 13.5 g/dL (12.0-15.0); Lymphocyte # 1.19 X10^3/ul (0.83-4.51); Lymphocyte % 21.2 % (19-41); Mean Corp Hgb Conc 32.1 g/dL (32-36); Mean Corpuscular Volume 90.3 fL (81-99); Mean Platelet Vol. 12.5 fl (6.2-12.0); Monocyte# 0.46 X10^3/uL; Monocyte% 8.2 % (0-10); NRBC Flagged by Analyzer 0 % (0-5); Neutrophil # 3.76 X10^3/uL (2.7-7.7); Neutrophil % 66.9 % (47-70); Platelet Count 156 K/mm3 (150-450); RBC Distribution Width CV 13.3 % (11.6-14.6); RBC Distribution Width SD 44.3 fl (35.1-43.9); Red Blood Count 4.66 M/mm3 (4.2-5.4); White Blood Count 5.6 K/mm3 (4.4-11.0)
[2022-01-23 16:05] LABS: Vitamin B12 301 pg/mL (211-911)
[2022-01-23 16:26] LABS: ALB/GLOB Ratio 1.1 RATIO (0.9-2.4); AST(SGOT) 17 U/L (15-37); Alanine Aminotransfer ALT/SGPT 30 U/L (13-56); Albumin, Serum 3.3 g/dL (3.2-5.0); Alkaline Phosphatase 73 U/L (45-117); Anion Gap 7 (5-15); BUN 13 mg/dL (7-18); Calcium,Total 8.7 mg/dL (8.5-10.1); Chloride 106 mmol/L (98-107); Cholesterol 155 mg/dL (200); Creatinine, Serum 0.82 mg/dL (0.55-1.02); EST Glomerular Filtration Rate 71 mL/min (>60); Est Glom Filt Rate - Afr Amer 85 mL/min (>60); Globulin 3.1 g/dL (2.2-4.2); Glucose 134 mg/dL (74-106); High Density Lipoprotein 49 mg/dL; Potassium 3.7 mmol/L (3.5-5.1); Protein, Total 6.4 g/dL (6.4-8.2); Sodium Level 140 mmol/L (136-145); T4 Free Direct 0.94 ng/dL (0.76-1.46); Thyroid Stim Hormone (TSH) 4.27 uIU/mL (0.358-3.74); Triglycerides 193 mg/dL; Very Low Density Lipoprotein 39 mg/dL (5-40)
[2022-01-24 11:10] LABS: Hemoglobin A1c 5.6 % (3.8-5.6)
== END | disposition home or self-care (01) ==
LOC: MFPLAB 13:57
PROVIDERS: PCP Family Medicine; Referring Provider Family Medicine; Visit Provider Family Medicine
DX: I10 Essential (primary) hypertension (principal); F03.90 Unspecified dementia, unspecified severity, without behavioral disturbance, psychotic disturbance, mood disturbance, and anxiety; E03.8 Other specified hypothyroidism; R73.09 Other abnormal glucose; E78.00 Pure hypercholesterolemia, unspecified
CPT/HCPCS: 36415; 80053; 80061; 82607; 83036; 84439; 84443; 85025

== ENCOUNTER → 2022-04-21 | Outpatient (REF) | payer MEDICARE, SELFPAY ==
[2022-04-21 09:02] LABS: Hematocrit 42.1 % (37-47); Hemoglobin 13.5 g/dL (12.0-15.0); Mean Corp Hgb Conc 32.1 g/dL (32-36); Mean Corpuscular Volume 90.5 fL (81-99); Mean Platelet Vol. 11.7 fl (6.2-12.0); Platelet Count 172 K/mm3 (150-450); RBC Distribution Width CV 13.2 % (11.6-14.6); RBC Distribution Width SD 43.1 fl (35.1-43.9); Red Blood Count 4.65 M/mm3 (4.2-5.4); White Blood Count 6.3 K/mm3 (4.4-11.0)
[2022-04-21 09:24] LABS: AST(SGOT) 12 U/L (15-37); Alanine Aminotransfer ALT/SGPT 25 U/L (13-56); Alkaline Phosphatase 63 U/L (45-117); Anion Gap 8 (5-15); BUN 15 mg/dL (7-18); BUN/Creat Ratio 19.9 RATIO (10-20); Calcium,Total 8.5 mg/dL (8.5-10.1); Chloride 102 mmol/L (98-107); Creatinine, Serum 0.75 mg/dL (0.55-1.02); EST Glomerular Filtration Rate 77 mL/min (>60); Est Glom Filt Rate - Afr Amer 93 mL/min (>60); Globulin 3.1 g/dL (2.2-4.2); Glucose 87 mg/dL (74-106); Potassium 3.6 mmol/L (3.5-5.1); Protein, Total 6.1 g/dL (6.4-8.2); Sodium Level 139 mmol/L (136-145)
== END ==
LOC: OLS.SW 04:00
PROVIDERS: PCP Family Medicine; Referring Provider Family Medicine; Visit Provider Family Medicine
DX: F03.90 Unspecified dementia, unspecified severity, without behavioral disturbance, psychotic disturbance, mood disturbance, and anxiety (principal); I83.93 Asymptomatic varicose veins of bilateral lower extremities
CPT/HCPCS: 36415; 80053; 85027

== ENCOUNTER → 2022-06-18 | Outpatient (REF) | payer MEDICARE, SELFPAY | LOC: OLS.SW 12:00 | PROVIDERS: PCP Family Medicine; Visit Provider Family Medicine | DX: A04.72 Enterocolitis due to Clostridium difficile, not specified as recurrent (principal) | CPT/HCPCS: 87493 ==

== ENCOUNTER → 2022-06-22 | Outpatient (REF) | payer MEDICARE, SELFPAY | LOC: OLS.SW 08:24 | PROVIDERS: PCP Family Medicine; Visit Provider Family Medicine | DX: R19.7 Diarrhea, unspecified (principal) | CPT/HCPCS: 87493 ==

== ENCOUNTER → 2022-07-21 | Outpatient (REF) | payer MEDICARE, SELFPAY ==
[2022-07-21 08:47] LABS: Hematocrit 42.6 % (37-47); Hemoglobin 14.1 g/dL (12.0-15.0); Mean Corp Hgb Conc 33.1 g/dL (32-36); Mean Corpuscular Hgb 29.8 pg (27.0-32.0); Mean Corpuscular Volume 90.1 fL (81-99); Mean Platelet Vol. 11.8 fl (6.2-12.0); Platelet Count 213 K/mm3 (150-450); RBC Distribution Width CV 13.5 % (11.6-14.6); RBC Distribution Width SD 44.5 fl (35.1-43.9); Red Blood Count 4.73 M/mm3 (4.2-5.4); White Blood Count 5.7 K/mm3 (4.4-11.0)
[2022-07-21 09:06] LABS: AST(SGOT) 26 U/L (15-37); Alanine Aminotransfer ALT/SGPT 33 U/L (13-56); Albumin, Serum 3.3 g/dL (3.2-5.0); Alkaline Phosphatase 70 U/L (45-117); Anion Gap 1 (5-15); BUN 14 mg/dL (7-18); BUN/Creat Ratio 17.7 RATIO (10-20); Calcium,Total 9.1 mg/dL (8.5-10.1); Chloride 106 mmol/L (98-107); Creatinine, Serum 0.79 mg/dL (0.55-1.02); EST Glomerular Filtration Rate 73 mL/min (>60); Est Glom Filt Rate - Afr Amer 88 mL/min (>60); Globulin 3.3 g/dL (2.2-4.2); Glucose 94 mg/dL (74-106); Protein, Total 6.6 g/dL (6.4-8.2); Sodium Level 137 mmol/L (136-145)
== END ==
LOC: OLS.SW 04:00
PROVIDERS: PCP Family Medicine; Referring Provider Family Medicine; Visit Provider Family Medicine
DX: F03.90 Unspecified dementia, unspecified severity, without behavioral disturbance, psychotic disturbance, mood disturbance, and anxiety (principal)
CPT/HCPCS: 36415; 80053; 85027

== ENCOUNTER → 2022-10-20 | Outpatient (REF) | payer MEDICARE, SELFPAY ==
[2022-10-20 08:11] LABS: Hemoglobin 13.6 g/dL (12.0-15.0); Mean Corp Hgb Conc 33.2 g/dL (32-36); Mean Corpuscular Hgb 29.5 pg (27.0-32.0); Mean Corpuscular Volume 88.9 fL (81-99); Mean Platelet Vol. 11.7 fl (6.2-12.0); Platelet Count 218 K/mm3 (150-450); RBC Distribution Width CV 12.7 % (11.6-14.6); Red Blood Count 4.61 M/mm3 (4.2-5.4); White Blood Count 5.9 K/mm3 (4.4-11.0)
[2022-10-20 08:30] LABS: AST(SGOT) 22 U/L (15-37); Alanine Aminotransfer ALT/SGPT 26 U/L (13-56); Albumin, Serum 3.3 g/dL (3.2-5.0); Alkaline Phosphatase 61 U/L (45-117); Anion Gap 4 (5-15); BUN 15 mg/dL (7-18); BUN/Creat Ratio 17.4 RATIO (10-20); Calcium,Total 8.9 mg/dL (8.5-10.1); Chloride 102 mmol/L (98-107); Creatinine, Serum 0.86 mg/dL (0.55-1.02); EST Glomerular Filtration Rate 66 mL/min (>60); Est Glom Filt Rate - Afr Amer 80 mL/min (>60); Globulin 3.3 g/dL (2.2-4.2); Glucose 82 mg/dL (74-106); Potassium 3.8 mmol/L (3.5-5.1); Protein, Total 6.6 g/dL (6.4-8.2); Sodium Level 135 mmol/L (136-145)
== END ==
LOC: OLS.SW 04:00
PROVIDERS: PCP Family Medicine; Referring Provider Family Medicine; Visit Provider Family Medicine
DX: I10 Essential (primary) hypertension (principal)
CPT/HCPCS: 36415; 80053; 85027

== ENCOUNTER → 2022-11-11 | Outpatient (REF) | payer MEDICARE, SELFPAY ==
[2022-11-11 11:12] LABS: T4 Total, Thyroxin 8.7 ug/dL (4.8-13.9); Thyroid Stim Hormone (TSH) 4.92 uIU/mL (0.358-3.74)
== END ==
LOC: OLS.SW 05:00
PROVIDERS: PCP Family Medicine; Visit Provider Family Medicine
DX: R63.4 Abnormal weight loss (principal)
CPT/HCPCS: 36415; 84436; 84443

== ENCOUNTER 2022-12-11 21:18 | Emergency (ER) | payer MEDICARE, SELFPAY ==
[2022-12-11 21:19] VITALS: BP 164/92; PULSE 78; RESP 18; TEMP 36.4; O2SAT 96; BMI 34.7
--- NOTE | 2022-12-11 21:36 | CT_ITS ---
STUDY: CT CERVICAL SPINE WITHOUT CONTRAST REASON FOR EXAM: Female, 87 years old. Trauma RADIATION DOSAGE (If Supplied By Facility): CTDIvol = ( 22.93 ) mGy, DLP = ( 941.88 ) mGycm TECHNIQUE: High resolution transaxial imaging was performed without contrast material. Sagittal and coronal images were reconstructed. Individualized dose optimization techniques were used for this CT. COMPARISON: None FINDINGS: No definite acute fracture/dislocation. The cervical junction is intact. C1-C2 articulation is intact. Mild reversal of curvature. There is normal alignment. Facet joints are intact at all levels bilaterally. No jumped facets. There is multilevel spondyloarthropathy. Multilevel degenerative disc disease seen. Multilevel loss of disc height. Multilevel posterior marginal osteophytes and disc bulges. Multilevel neural foraminal narrowing. Visualized paraspinal soft tissues and structures are unremarkable. CT/Spine Cervical without Contras IMPRESSION: There is no definite acute fracture/dislocation. Degenerative changes. Electronically Signed: Jabari Chapman MD at 22:15 EDT ,
--- NOTE | 2022-12-11 21:36 | CT_ITS ---
STUDY: CT BRAIN WITHOUT CONTRAST REASON FOR EXAM: Female, 87 years old. Trauma RADIATION DOSAGE (If Supplied By Facility): CTDIvol = ( 44.99 ) mGy, DLP = ( 829.85 ) mGycm TECHNIQUE: Transaxial CT imaging of the brain was performed without administration of intravenous contrast material. Individualized dose optimization techniques were used for this CT. COMPARISON: 06/02/2015 FINDINGS: Limited by motion. Soft tissue swelling of the left forehead with tiny foci of soft tissue air consistent with laceration. Normal calvarium. There is mild cerebral atrophy with widening of the extra-axial spaces and ventricular dilatation. There are areas of decreased attenuation within the white matter tracts of the supratentorial brain, consistent with microvascular disease changes. 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 Normal brainstem. There is mild cerebellar atrophy. There is no intracranial hemorrhage. There are no findings of an acute ischemic infarction. Normal visualized paranasal sinuses. CT/Brain/Head without Contrast IMPRESSION: Chronic involutional changes of the brain. No change or acute abnormality. Electronically Signed: Jabari Chapman MD at 22:11 EDT ,
--- NOTE | 2022-12-11 21:38 | EDS_ITS ---
HPI HPI - Fall History of Present Illness Chief Complaint: Fall Informant: patient and EMS Narrative Narrative: Patient is at [facility]. She evidently fell out of bed. She is alert really to name. This is evidently her baseline. She states she fell tonight. She states the only spot that hurts is her forehead. Nothing else hurts. She is not on any blood thinners. She felt fine prior to this. But her history is somewhat limited due to her chronic dementia. PFSH PFSH Medical History Anxiety Hyperlipemia Hypertension Obesity Home Medications albuterol sulfate 90 mcg/actuation aerosol inhaler 1 inh inhalation Q6H PRN stacey rtness of breath or wheezing 30 days #8.5 grams 06/05/21 [Rx Last Taken Unknown] furosemide 20 mg tablet (Lasix) 20 mg PO DAILY 30 days #30 tabs 06/05/21 [Rx Last Taken Unknown] guaifenesin 1,200 mg tablet, extended release 12 hr (Mucus Relief ER) 1,200 mg PO BID PRN COUGH 5 days #10 tabs 06/05/21 [Rx Last Taken Unknown] Allergy/AdvReac Type Severity Reaction Status Date / Time alendronate sodium Allergy Mild unknown Verified 12/11/22 21:19 [From Fosamax] codeine AdvReac Other Verified 12/11/22 21:19 prednisone AdvReac Other Verified 12/11/22 21:19 Surgical History H/O hand surgery H/O: hysterectomy History of appendectomy Social History household members: none Smoking Status: Current every day smoker tobacco type: cigarettes details: Unknown substance use type: does not use ROS ROS ED ROS Narrative Very limited history. Patient essentially denies all complaints. Eyes Eyes: Denies blurry vision ENT ENT ED: Reports other Details: Does admit to forehead/headache Cardiovascular Cardiovascular: Denies chest pain Respiratory/Chest Respiratory/Chest: Denies dyspnea Musculoskeletal Musculoskeletal: Denies arthralgias, back pain, myalgias or neck pain Integumentary Reports other Details: Laceration left upper forehead Neurologic Neurologic: Reports headache(s) Hematologic/Lymphatic Hematologic/Lymphatic: Denies easy bleeding or easy bruising Allergic/Immunologic Allergic/Immunologic ED: Denies urticaria EXAM Physical Exam Narrative Exam Narrative: Patient is awake and alert. She is intermittently argumentative. But she calms down just talking with her. She has poor short-term memory. HEENT: She has a V-shaped laceration total length 3 cm on the left upper forehead. No bleeding. Minimal swelling. No step-off. I see no other trauma on her head when I looked all through her hair. There is no active bleeding. Face is nontender. Nose is not tender. No epistaxis. No lip lacerations. Neck is nontender on exam. Heart is regular. Lungs are clear. Saturations are normal at 96% on room air showing no hypoxia. Abdomen soft nontender. There is no cervical thoracic or lumbar tenderness. Extremities show no sign of any skin tears or trauma. I can press on all areas of upper and lower extremities without pain. I can move her knees and hips without any discomfort. She can lift her arms up in the air and move them all around without any pain. Neurologically she is awake alert primarily to person. She did tell me she is in the hospital. Evidently this is even better than her baseline which is A&O x1. Const Vital Signs: 12/11/22 21:19 12/11/22 21:22 Temperature 97.5 F L Temperature Source Temporal Pulse Rate 78 Respiratory Rate 18 Respiratory Effort Normal Non-Labored Respiratory Depth Normal Respiratory Pattern Normal Blood Pressure 164/92 H Blood Pressure Mean 116 Pulse Ox 96 Oxygen Delivery Method Room Air MDM MDM MDM Narrative Medical decision making narrative: Independent interpretation the patient's CT of the head and neck without contrast shows no acute process. No bleeding. No fracture. Final reading is similar. It does mention degenerative changes consistent with her age. Procedure: Laceration repair: LET was applied to the area. I then placed about 1 cc of 1% lidocaine with epinephrine locally to get good anesthesia. She actually tolerated this pretty well. The area was then scrubbed with Shur-Clens and saline and then irrigated with saline. It was sutured with 4 interrupted 5-0 Ethilon if that is the sutures that I had available at the time. It was closed with good cosmesis and hemostasis. The reason he did not use tissue adhesive in this area as it is on the edge of her hair and the V shaped flap tended to pull open and I was concerned that the glue would not hold her that the patient would pick or pull at this. The suture should be removed in about 5 days. Radiography Diagnostic Testing: Clinical Impression(s) from Imaging Studies Brain CT 12/11/22 21:36 IMPRESSION: Chronic involutional changes of the brain. No change or acute abnormality. Electronically Signed: Jabari Chapman MD at 22:11 EDT , Cervical Spine CT 12/11/22 21:36 IMPRESSION: There is no definite acute fracture/dislocation. Degenerative changes. Electronically Signed: Jabari Chapman MD at 22:15 EDT , Discharge Plan Triage Chief Complaint: Fall Other Complaint: Head Injury ED Provider: Chao Díaz Dx/Rx/DC Orders Clinical Impression: Accidental fall from bed, Sutured skin wound, History of dementia, Closed head injury, Forehead laceration Instructions: ED Head Injury (Adult), ED Laceration: All Closures Prescriptions: No Action Mucus Relief ER 1,200 mg Tablet Extended Release 12hr 1,200 mg PO BID PRN (Reason: COUGH) 5 Days Qty: 10 0RF albuterol sulfate 90 mcg/actuation HFA aerosol inhaler 1 inh inhalation Q6H PRN (Reason: shortness of breath or wheezing) 30 Days Qty: 8.5 0RF furosemide [Lasix] 20 mg tablet 20 mg PO DAILY 30 Days Qty: 30 0RF Primary Care Provider: Chad Mg Referrals: Chad Mg MD [Primary Care Provider] - 5 Days for suture removal Disposition Disposition: [facility] Facility Discharge Location: [facility]
[2022-12-11] MEDS: Lidocaine 1% /Epi 1:100 (20ml) 20 ML Vial INFILT (22:00)
[2022-12-11] MEDS: Lidocaine/Epi/Tetracaine 50 ML 1 APPLIC TOPICAL (22:00)
--- NOTE | 2022-12-11 23:40 | ED.RN ---
Report given to [facility].
== END 2022-12-12 02:54 | disposition skilled nursing facility (03) ==
PROVIDERS: Emergency Provider Emergency Medicine; PCP Family Medicine; Visit Provider Emergency Medicine
DX: S09.90XA Unspecified injury of head, initial encounter (principal); F03.90 Unspecified dementia, unspecified severity, without behavioral disturbance, psychotic disturbance, mood disturbance, and anxiety; F17.210 Nicotine dependence, cigarettes, uncomplicated; I10 Essential (primary) hypertension; Z79.899 Other long term (current) drug therapy; W06.XXXA Fall from bed, initial encounter
CPT/HCPCS: 12013; 70450; 72125; 99285

== ENCOUNTER → 2023-03-09 | Outpatient (REF) | payer MEDICARE, SELFPAY ==
[2023-03-09 09:11] LABS: Hematocrit 41.2 % (37-47); Hemoglobin 13.2 g/dL (12.0-15.0); Mean Corpuscular Hgb 28.2 pg (27.0-32.0); Mean Platelet Vol. 12.7 fl (6.2-12.0); Platelet Count 161 K/mm3 (150-450); RBC Distribution Width CV 13.5 % (11.6-14.6); RBC Distribution Width SD 43.5 fl (35.1-43.9); Red Blood Count 4.68 M/mm3 (4.2-5.4); White Blood Count 6.4 K/mm3 (4.4-11.0)
[2023-03-09 09:30] LABS: ALB/GLOB Ratio 0.9 RATIO (0.9-2.4); AST(SGOT) 18 U/L (15-37); Alanine Aminotransfer ALT/SGPT 18 U/L (13-56); Alkaline Phosphatase 61 U/L (45-117); Anion Gap 4 (5-15); BUN 19 mg/dL (7-18); BUN/Creat Ratio 20.5 RATIO (10-20); Calcium,Total 8.5 mg/dL (8.5-10.1); Chloride 105 mmol/L (98-107); Creatinine, Serum 0.93 mg/dL (0.55-1.02); EST Glomerular Filtration Rate 61 mL/min (>60); Est Glom Filt Rate - Afr Amer 74 mL/min (>60); Globulin 3.3 g/dL (2.2-4.2); Glucose 86 mg/dL (74-106); Potassium 4.2 mmol/L (3.5-5.1); Protein, Total 6.3 g/dL (6.4-8.2); Sodium Level 137 mmol/L (136-145)
== END ==
LOC: OLS.WCC 04:00
PROVIDERS: PCP Family Medicine; Referring Provider Family Medicine; Visit Provider Family Medicine
DX: J44.9 Chronic obstructive pulmonary disease, unspecified (principal); Z79.899 Other long term (current) drug therapy
CPT/HCPCS: 36415; 80053; 85027

== ENCOUNTER → 2023-04-09 | Outpatient (REF) | payer MEDICARE, SELFPAY ==
[2023-04-09 07:52] LABS: Hematocrit 40.8 % (37-47); Hemoglobin 13.1 g/dL (12.0-15.0); Mean Corp Hgb Conc 32.1 g/dL (32-36); Mean Corpuscular Hgb 28.4 pg (27.0-32.0); Mean Corpuscular Volume 88.3 fL (81-99); Mean Platelet Vol. 11.5 fl (6.2-12.0); Platelet Count 161 K/mm3 (150-450); RBC Distribution Width CV 13.9 % (11.6-14.6); RBC Distribution Width SD 44.8 fl (35.1-43.9); Red Blood Count 4.62 M/mm3 (4.2-5.4); White Blood Count 5.8 K/mm3 (4.4-11.0)
[2023-04-09 08:27] LABS: ALB/GLOB Ratio 0.8 RATIO (0.9-2.4); AST(SGOT) 13 U/L (15-37); Alanine Aminotransfer ALT/SGPT 14 U/L (13-56); Albumin, Serum 2.8 g/dL (3.2-5.0); Alkaline Phosphatase 64 U/L (45-117); Anion Gap 6 (5-15); BUN 17 mg/dL (7-18); BUN/Creat Ratio 20.9 RATIO (10-20); Chloride 105 mmol/L (98-107); Creatinine, Serum 0.81 mg/dL (0.55-1.02); EST Glomerular Filtration Rate 71 mL/min (>60); Est Glom Filt Rate - Afr Amer 85 mL/min (>60); Globulin 3.3 g/dL (2.2-4.2); Glucose 83 mg/dL (74-106); Potassium 4.2 mmol/L (3.5-5.1); Protein, Total 6.1 g/dL (6.4-8.2); Sodium Level 139 mmol/L (136-145)
== END ==
LOC: OLS.WCC 05:00
PROVIDERS: PCP Family Medicine; Visit Provider Family Medicine
DX: F03.90 Unspecified dementia, unspecified severity, without behavioral disturbance, psychotic disturbance, mood disturbance, and anxiety (principal); I10 Essential (primary) hypertension; Z79.899 Other long term (current) drug therapy
CPT/HCPCS: 36415; 80053; 85027

== ENCOUNTER → 2023-10-06 | Outpatient (REF) | payer MEDICARE, SELFPAY ==
[2023-10-06 08:14] LABS: Hematocrit 42.1 % (37-47); Hemoglobin 14.2 g/dL (12.0-15.0); Mean Corp Hgb Conc 33.7 g/dL (32-36); Mean Platelet Vol. 11.6 fl (6.2-12.0); Platelet Count 178 K/mm3 (150-450); RBC Distribution Width CV 12.9 % (11.6-14.6); RBC Distribution Width SD 42.3 fl (35.1-43.9); Red Blood Count 4.73 M/mm3 (4.2-5.4); White Blood Count 6.2 K/mm3 (4.4-11.0)
[2023-10-06 08:33] LABS: ALB/GLOB Ratio 0.9 RATIO (0.9-2.4); AST(SGOT) 13 U/L (15-37); Alanine Aminotransfer ALT/SGPT 14 U/L (13-56); Albumin, Serum 3.2 g/dL (3.2-5.0); Alkaline Phosphatase 58 U/L (45-117); Anion Gap 7 (5-15); BUN 19 mg/dL (7-18); BUN/Creat Ratio 21.7 RATIO (10-20); Calcium,Total 9.1 mg/dL (8.5-10.1); Chloride 103 mmol/L (98-107); Creatinine, Serum 0.88 mg/dL (0.55-1.02); EST Glomerular Filtration Rate 65 mL/min (>60); Est Glom Filt Rate - Afr Amer 78 mL/min (>60); Globulin 3.4 g/dL (2.2-4.2); Glucose 94 mg/dL (74-106); Protein, Total 6.6 g/dL (6.4-8.2); Sodium Level 136 mmol/L (136-145)
== END ==
LOC: OLS.WCC 05:00
PROVIDERS: PCP Family Medicine; Visit Provider Family Medicine
DX: I10 Essential (primary) hypertension (principal); F03.90 Unspecified dementia, unspecified severity, without behavioral disturbance, psychotic disturbance, mood disturbance, and anxiety; Z79.899 Other long term (current) drug therapy
CPT/HCPCS: 36415; 80053; 85027

== ENCOUNTER → 2024-04-11 05:00 | Outpatient (REF) | payer MEDICARE, SELFPAY ==
[2024-04-11 09:17] LABS: Hematocrit 39.8 % (37-47); Hemoglobin 13.1 g/dL (12.0-15.0); Mean Corp Hgb Conc 32.9 g/dL (32-36); Mean Corpuscular Hgb 29.2 pg (27.0-32.0); Mean Corpuscular Volume 88.8 fL (81-99); Mean Platelet Vol. 12.6 fl (6.2-12.0); Platelet Count 137 K/mm3 (150-450); RBC Distribution Width CV 12.8 % (11.6-14.6); RBC Distribution Width SD 42.1 fl (35.1-43.9); Red Blood Count 4.48 M/mm3 (4.2-5.4); White Blood Count 5.4 K/mm3 (4.4-11.0)
[2024-04-11 09:42] LABS: ALB/GLOB Ratio 0.9 RATIO (0.9-2.4); AST(SGOT) 18 U/L (15-37); Alanine Aminotransfer ALT/SGPT 15 U/L (13-56); Alkaline Phosphatase 62 U/L (45-117); Anion Gap 5 (5-15); BUN 16 mg/dL (7-18); BUN/Creat Ratio 20.6 RATIO (10-20); Calcium,Total 8.8 mg/dL (8.5-10.1); Chloride 107 mmol/L (98-107); Creatinine, Serum 0.78 mg/dL (0.55-1.02); EST Glomerular Filtration Rate 74 mL/min (>60); Est Glom Filt Rate - Afr Amer 90 mL/min (>60); Globulin 3.2 g/dL (2.2-4.2); Glucose 88 mg/dL (74-106); Potassium 4.2 mmol/L (3.5-5.1); Protein, Total 6.2 g/dL (6.4-8.2); Sodium Level 138 mmol/L (136-145)
== END ==
LOC: OLS.WCC 05:00
PROVIDERS: PCP Family Medicine; Visit Provider Family Medicine
DX: J44.9 Chronic obstructive pulmonary disease, unspecified (principal); I10 Essential (primary) hypertension
CPT/HCPCS: 36415; 80053; 85027

== ENCOUNTER → 2024-10-10 05:00 | Outpatient (REF) | payer MEDICARE, SELFPAY ==
[2024-10-10 08:15] LABS: Hematocrit 41.1 % (37-47); Hemoglobin 13.5 g/dL (12.0-15.0); Mean Corp Hgb Conc 32.8 g/dL (32-36); Mean Corpuscular Volume 90.3 fL (81-99); Mean Platelet Vol. 12.4 fl (6.2-12.0); Platelet Count 158 K/mm3 (150-450); RBC Distribution Width CV 13.1 % (11.6-14.6); RBC Distribution Width SD 43.5 fl (35.1-43.9); Red Blood Count 4.55 M/mm3 (4.2-5.4); White Blood Count 5.8 K/mm3 (4.4-11.0)
[2024-10-10 08:40] LABS: AST(SGOT) 18 U/L (<=31); Alanine Aminotransfer ALT/SGPT 9 U/L (<=34); Albumin, Serum 3.7 g/dL (3.4-4.8); Alkaline Phosphatase 66 U/L (35-104); Anion Gap 10 (5-15); BUN 18 mg/dL (4-19); BUN/Creat Ratio 20.1 RATIO (10-20); Calcium,Total 8.9 mg/dL (7.6-11.0); Carbon Dioxide 22.1 mmol/L (21.0-32.0); Chloride 107 mmol/L (98-108); Globulin 2.4 g/dL (2.2-4.2); Glucose 92 mg/dL (70-99); Potassium 4.3 mmol/L (3.3-5.1)
== END ==
LOC: OLS.WCC 05:00
PROVIDERS: PCP Family Medicine; Visit Provider Family Medicine
DX: I10 Essential (primary) hypertension (principal); J44.9 Chronic obstructive pulmonary disease, unspecified; Z79.899 Other long term (current) drug therapy
CPT/HCPCS: 36415; 80053; 85027